=== PATIENT | female | born 1995 | race Caucasian/White ===

== ENCOUNTER 2020-05-26 14:09 | Emergency (ER) | payer OTHER, SELFPAY ==
[2020-05-26 14:18] VITALS: BP 142/92; PULSE 87; RESP 16; TEMP 36.7; O2SAT 100
--- NOTE | 2020-05-26 14:19 | ED.GENADULT ---
HPI - General Adult General Chief complaint: Dental/Oral Stated complaint: tooth pain Time Seen by Provider: 05/26/20 14:19 Source: patient Mode of arrival: ambulatory Limitations: no limitations History of Present Illness HPI narrative: 25-year-old female patient presents to the [facility] with complaints of right upper dental pain x2 to 3 days. Denies any fevers but states she has had some body aches and chills. Denies any obvious discharge coming from the tooth. Patient states that this morning she noticed that her right cheek was a little swollen and wanted to come and get checked out. Patient states she did try calling her dentist for a follow-up however they are not able to get her in until July. Patient states she was taking some naproxen that she had leftover which she states did help with her pain. Related Data Home Medications Medication Instructions Recorded Confirmed Bc Pill 05/26/20 Allergies Allergy/AdvReac Type Severity Reaction Status Date / Time No Known Allergies Allergy Verified 05/26/20 14:14 Review of Systems Review of Systems: Narrative: CONSTITUTIONAL: Denies fever, chills, or sweats. EYES: Denies visual changes, redness, or discharge. ENT: Denies rhinorrhea, congestion, sore throat, or otalgia. Positive right upper dental pain x2 to 3 days CARDIOVASCULAR: Denies chest pain, palpitations, or edema. RESPIRATORY: Denies cough or dyspnea. GASTROINTESTINAL: Denies abdominal pain, nausea, vomiting, or diarrhea. GENITOURINARY: Denies dysuria or hematuria. SKIN: Denies rash or itching. MUSCULOSKELETAL: Denies back pain, joint pain, or myalgia. NEUROLOGIC: Denies headache, numbness, or weakness. PSYCHIATRIC: Denies anxiety or depression. PMFSH Comments At the time of my signature I agree with nursing past medical history, surgical, social, and family history. There is no relevant family history pertinent to the presenting complaint. Exam Narrative: Exam Narrative: GENERAL: Well-appearing, well-nourished, and in no acute distress. HEAD: Normocephalic, atraumatic. EYES: PERRLA and EOMI. ENT: Nares clear, no rhinorrhea or epistaxis. Mucous membranes moist. Patient does have a broken tooth noted to the right upper molar with surrounding erythema and swelling to the gum no obvious discharge noted. There is a lot of tenderness noted. The right cheek is slightly swollen and on palpation there could be an abscess palpated but there is nothing visualized. NECK: Supple. No lymphadenopathy CHEST: Clear to auscultation. No respiratory distress. HEART: Regular rate and rhythm. No murmur heard. Normal peripheral pulses. ABDOMEN: Soft, nontender, nondistended, normal active bowel sounds. EXTREMITIES: Normal range of motion. No edema. SKIN: Warm, dry, no rash. NEURO: No focal deficits. Alert and oriented x3. Course Vital Signs Vital signs: Vital signs reviewed. The patient has been informed that they may have pre-hypertension or Hypertension based on a BP reading in the department. I recommend that the patient call the primary care provider listed on their discharge instructions or a physician of their choice this week to arrange follow up for further evaluation of possible pre-hypertension or Hypertension Medical Decision Making Differential Diagnosis Differential Diagnosis: Differential diagnosis: Dental caries, periodontal disease, avulsed tooth, tooth infections, mandibular infection, Jm's angiana, upper tooth infection, dry socket, gingivitis, acute necrotizing ulcerative gingivitis, sialolithiasis. Discussed with patient that we will go ahead and discharge her home with an antibiotic as well as some naproxen since this is helping her pain. Encourage patient to go ahead and make an appointment with her dentist even if it is in July that way if she continues to have issues she can get this taken care of in July. Patient verbalized understanding denies any other questions or concerns at this
== END 2020-05-26 14:31 | disposition home or self-care (01) ==
PROVIDERS: Emergency Provider Nurse Practitioner Family; PCP Family Medicine
DX: K02.9 Dental caries, unspecified (principal); K04.7 Periapical abscess without sinus; S02.5XXA Fracture of tooth (traumatic), initial encounter for closed fracture; X58.XXXA Exposure to other specified factors, initial encounter
CPT/HCPCS: 99203; G0463

== ENCOUNTER 2022-02-11 10:57 | Emergency (ER) | payer OTHER, SELFPAY ==
[2022-02-11 11:06] VITALS: BP 138/77; PULSE 67; RESP 16; TEMP 36.5; O2SAT 99
--- NOTE | 2022-02-11 11:19 | ED.EAR ---
HPI - Ear Problem General Chief complaint: Ear Stated complaint: Ear Pain Time Seen by Provider: 02/11/22 11:10 Source: patient Mode of arrival: ambulatory Limitations: no limitations History of Present Illness HPI Narrative: Ms. Garcia is a 27-year-old female patient presenting to the clinic today with complaints of right ear pain x4 days. She reports last night was the worst pain for her. She also reports some dizziness and nausea. She denies any fever or chills. Related Data Allergies Allergy/AdvReac Type Severity Reaction Status Date / Time No Known Allergies Allergy Verified 02/11/22 11:00 Review of Systems Review of Systems: Pertinent positives per HPI. Patient denies any fever, chills, rash, headache, visual changes, dizziness, cough, runny nose, sore throat, shortness of breath, chest pain, palpitations, nausea, vomiting, diarrhea, constipation, abdominal pain, or any urinary issues. PMFSH Comments At the time of my signature, I reviewed and agree with the nursing past medical, surgical, social, and family history. There is no relevant family history pertinent to the patient complaint. Exam Narrative: General: Well-developed, well nourished, in no apparent distress Head: Normocephalic, atraumatic Eyes: Pupils equally round and reactive to light bilaterally, EOM intact, sclera and conjunctive clear, no discharge, lids normal Ears: Left TM intact and clear, right TM intact, bulging, red, left ear canals clear, right ear canal swollen, red, with white exudate, grossly hearing normal. Nose: Nares patent, no discharge, no inflammation, no sinus tenderness. Mouth: Oropharynx without lesions or masses, good dentition, MMM. Neck: Supple, trachea midline, no enlargement of anterior or posterior cervical nodes, no thyroid masses or goiter palpable. Cardio: Regular rate and rhythm, s1 and s2 normal, no murmur appreciated. Resp: Clear to auscultation bilaterally anteriorly and posteriorly, no rhonchi, rales, wheezing or rubs Course Course Emergency Course: Portions of this record may have been created with voice recognition software. Level of Care: Express Care Visit Vital Signs Vital signs: Vital Signs Temperature 36.5 C 02/11/22 11:06 Pulse Rate 67 02/11/22 11:06 Respiratory Rate 16 02/11/22 11:06 Blood Pressure 138/77 02/11/22 11:06 Pulse Oximetry 99 02/11/22 11:06 Oxygen Delivery Room Air 02/11/22 11:06 Temperature 36.5 C 02/11/22 11:06 Pulse Rate 67 02/11/22 11:06 Respiratory Rate 16 02/11/22 11:06 Blood Pressure 138/77 02/11/22 11:06 Pulse Oximetry 99 02/11/22 11:06 Oxygen Delivery Room Air 02/11/22 11:06 Vital signs reviewed Medical Decision Making MDM Narrative Medical decision making narrative: At the time of visit patient is resting comfortably on the exam table. I suspect the patient has right otitis media and otitis externa. Amoxicillin ofloxacin drops were sent to the pharmacy. Supportive measures were discussed with the patient and she voiced understanding of discharge instructions and agrees to treatment plan Differential Diagnosis Differential Diagnosis: Otitis media, otitis externa, eustachian tube dysfunction, otalgia Vital Signs Vital Signs: Vital Signs Temperature 36.5 C 02/11/22 11:06 Pulse Rate 67 02/11/22 11:06 Respiratory Rate 16 02/11/22 11:06 Blood Pressure 138/77 02/11/22 11:06 Pulse Oximetry 99 02/11/22 11:06 Oxygen Delivery Room Air 02/11/22 11:06 Temperature 36.5 C 02/11/22 11:06 Pulse Rate 67 02/11/22 11:06 Respiratory Rate 16 02/11/22 11:06 Blood Pressure 138/77 02/11/22 11:06 Pulse Oximetry 99 02/11/22 11:06 Oxygen Delivery Room Air 02/11/22 11:06 Discharge Plan Discharge Clinical Impression: Otitis externa, Otitis media Patient Disposition: Home, Self-Care Condition: Stable Instructions: Antibiotic Form, Swimmer's Ear (ED), Ear Infection (ED) Additiona
== END 2022-02-11 11:23 | disposition home or self-care (01) ==
PROVIDERS: Emergency Provider Nurse Practitioner Family; PCP Family Medicine
DX: H60.91 Unspecified otitis externa, right ear (principal); H66.91 Otitis media, unspecified, right ear
CPT/HCPCS: 99213; G0463

== ENCOUNTER 2022-02-13 10:33 | Emergency (ER) | payer OTHER, SELFPAY ==
[2022-02-13 11:08] VITALS: BP 142/89; PULSE 93; RESP 18; TEMP 36.4; O2SAT 99
--- NOTE | 2022-02-13 11:39 | ED.EAR ---
HPI - Ear Problem General Chief complaint: Ear Stated complaint: Ear infection Time Seen by Provider: 02/13/22 11:39 History of Present Illness HPI Narrative: Monica Garcia is a 27 yo female with no PMH who came here 2 days ago with ear pain and was started on eardrops and antibiotic. She states that pain has not improved and describes it now as 10 out of 10 Patient spoke to This morning who said that he could not get her in that she come should come back here She states that she has swelling cannot open her mouth far and something is really wrong- I told her that we can try giving her prednisone and IM antibiotic or go to the ER. If the meds I give her don't help her she needs to go to the ER. Patient was very angry and stated that this is her only second time here and I don't need to talk to her like this. I apologized and told her that I was trying to make clear what her treatment plan would be; that if in fact these 2 drugs did not help her along with the medication at discharge; she had to go to the emergency room if she got worse because there is nothing else that we can do in the [facility] for her Related Data Allergies Allergy/AdvReac Type Severity Reaction Status Date / Time No Known Allergies Allergy Verified 02/13/22 10:54 Review of Systems Review of Systems: CONSTITUTIONAL: Denies fever, chills, sweats. EYES: Denies visual changes, redness, discharge. ENT: Denies rhinorrhea, congestion, sore throat, right otalgia. States that she is got swelling along her right jaw and she cannot open her mouth CARDIOVASCULAR: Denies chest pain, palpitations, edema. RESPIRATORY: Denies dyspnea, wheezing, cough GASTROINTESTINAL: Denies abdominal pain, nausea, vomiting, diarrhea. GENITOURINARY: Denies dysuria, hematuria, abnormal discharge SKIN: Denies rash or itching. NEUROLOGIC: Denies numbness, or focal weakness. PSYCHIATRIC: Denies anxiety or depression. PMFSH Social History Social History (Updated 02/13/22 @ 11:40 by Kelsy Valerio CNP) Smoking status: Never smoker Alcohol intake: current Comments At time of signature, I agree with nursing past medical, surgical, social and family history. There is no relevant family history pertinent to the presenting complaint. Exam Narrative: GENERAL: This is a well-nourished, well-developed patient, in mild distress. HEAD: normocephalic, atraumatic. EYES: PERRL. Sclera clear/white. Vision is grossly intact. EARS: External mild erythema of right ear, very tender to touch, , auditory canals erythema, unable to visualize TM and drainage although patient states that she had drainage last night on her pillow Hearing grossly intact. NOSE: External nose normal without nasal discharge, nares without redness, no rhinorrhea. THROAT: Mucous membranes moist, posterior pharynx hard to visualize as patient cannot or will not open mouth due to pain has some mild swelling to the right side of her face; limited ability to open mouth due to pain NECK: Neck supple, non-tender CARDIOVASCULAR: Regular rate and rhythm without murmurs, gallops, or rubs. RESPIRATORY: Clear to auscultation. Breath sounds equal bilaterally. No wheezes, rales, or rhonchi. GASTROINTESTINAL: Not done SKIN: warm, intact with no suspicious lesions or rash, good texture and turgor. NEURO: awake, alert, and oriented to person, place and time. There were no obvious focal neurologic abnormalities. Steady gait EXTREMITIES: Normal range of motion. BACK: Nontender without deformity Course Course Emergency Course: Patient here with increasing pain of right ear and difficulty opening mouth and complaining of exterior ear pain. States has been taking antibiotics and using eardrops as prescribed 2 days ago Patient given Decadron 4 mg here along with Rocephin 500 mg on site Started on prednisone taper pack along with abx replacement with Augmentin; [place] for pain written instructions include going to ER if not improve (suspect e
[2022-02-13] MEDS: cefTRIAXone 500 MG, LIDOCAINE HCL 1% LOCAL INJ 1 ML IM (12:09)
--- NOTE | 2022-02-13 12:15 | PC.NURSE ---
was tearful. stated upset d/t being second visit.
== END 2022-02-13 12:30 | disposition home or self-care (01) ==
PROVIDERS: Emergency Provider Nurse Practitioner; PCP Family Medicine
DX: H60.91 Unspecified otitis externa, right ear (principal); Z86.16 Personal history of COVID-19
CPT/HCPCS: 96372; 99214; G0463; J0696; J1100

== ENCOUNTER 2022-12-01 16:24 | Emergency (ER) | payer OTHER, SELFPAY ==
[2022-12-01 16:27] VITALS: PULSE 106; RESP 18; TEMP 36.5; O2SAT 98
--- NOTE | 2022-12-01 17:28 | ED.DENTAL ---
HPI - Dental/Oral General Chief complaint: Dental/Oral <Keenan Nesbitt PA-C - Last Filed: 12/01/22 17:45> Stated complaint: dental pain, jaw swelling <Keenan eNsbitt PA-C - Last Filed: 12/01/22 17:45> Time Seen by Provider: 12/01/22 16:32 <Keenan Nesbitt PA-C - Last Filed: 12/01/22 17:45> Source: patient <ELOISA Prado Last Filed: 12/01/22 17:45> Mode of arrival: ambulatory <Keenan Nesbitt PA-C - Last Filed: 12/01/22 17:45> Limitations: no limitations <ELOISA Prado Last Filed: 12/01/22 17:45> History of Present Illness HPI Narrative: This is a 27-year-old female who presents to the ED with chief complaint of right lower dental pain ongoing for the past 3 days. She has used Tylenol with moderate relief at home. She is presenting today because she was told to go to the ER by her dentist. They were concerned because she is reporting paresthesias to the right lower perioral area. Denies any fevers, chills, trismus, drooling nausea, vomiting, swelling. <Keenan Nesbitt PA-C - Last Filed: 12/01/22 17:45> Related Data Allergies/adverse reactions: Allergies Allergy/AdvReac Type Severity Reaction Status Date / Time No Known Allergies Allergy Verified 12/01/22 16:56 <Keenan Nesbitt PA-C - Last Filed: 12/01/22 17:45> Review of Systems Review of Systems: CONSTITUTIONAL: Denies fever, chills, or sweats. EYES: Denies visual changes, redness, or discharge. ENT: See HPI CARDIOVASCULAR: Denies chest pain, palpitations, or edema. RESPIRATORY: Denies cough or dyspnea. GASTROINTESTINAL: Denies abdominal pain, nausea, vomiting, or diarrhea. GENITOURINARY: Denies dysuria or hematuria. SKIN: Denies rash or itching. MUSCULOSKELETAL: Denies back pain, joint pain, or myalgia. NEUROLOGIC: Denies headache, numbness, dizziness, or weakness. PSYCHIATRIC: Denies anxiety or depression. <Keenan Nesbitt PA-C - Last Filed: 12/01/22 17:45> [facility] Social History Social History: Social History (Updated 02/13/22 @ 11:40 by Kelsy Valerio, [employer]INE [employer]) Smoking status: Never smoker Alcohol intake: current <Keenan Nesbitt PA-C - Last Filed: 12/01/22 17:45> Exam Narrative: GENERAL: Well-appearing, well-nourished, and in no acute distress. HEAD: Normocephalic, atraumatic. EYES: PERRLA and EOMI. ENT: Nares clear, no rhinorrhea or epistaxis. Mucous membranes moist. Oropharynx without tonsillar hypertrophy exudate or other lesions. There is a broken right posterior most molar with evident caries. Mild swelling around the gums but no obvious abscess. Floor the mouth is intact. Posterior pharynx intact with no uvular deviation. No trismus or drooling. NECK: Supple. No adenopathy or masses. CHEST: No respiratory distress. Clear to auscultation. No wheezes rales or rhonchi HEART: Regular rate and rhythm. No murmur heard. Normal peripheral pulses. ABDOMEN: Soft, nontender, nondistended, normal active bowel sounds. MSK: Normal range of motion. No edema. SKIN: Warm, dry, no rash. NEURO: Alert and oriented x3. No focal deficits. PSYCH: Normal mood and affect. <Keenan Nesbitt PA-C - Last Filed: 12/01/22 17:45> Course CASE BRIEFER/PA Physician Supervision For this patient encounter, I reviewed the CASE BRIEFER or PA documentation, treatment plan, and I was responsible for the medical decision making; and I had [id number] time with this patient. <Silvano Redding MD - Last Filed: 12/01/22 21:05> Vital Signs Vital signs: Vital Signs Temperature 97.7 F 12/01/22 16:27 Pulse Rate 106 H 12/01/22 16:27 Respiratory Rate 18 12/01/22 16:27 Pulse Oximetry 98 12/01/22 16:27 Oxygen Delivery Room Air 12/01/22 16:27 Temperature 98.6 F 12/01/22 17:50 Pulse Rate 82 12/01/22 17:50 Respiratory Rate 18 12/01/22 17:50 Pulse Oximetry 100 12/01/22 17:50 Oxygen Delivery Room Air 12/01/22 16:27 <Keenan Nesbitt PA-C - Last Filed: 12/01/22 17:45> Vital Sign
[2022-12-01] MEDS: HYDROcodone/acetaminophen (*CRX) 7.5-325 MG TABLET 1 TAB PO (17:31)
[2022-12-01 17:50] VITALS: PULSE 82; RESP 18; TEMP 37; O2SAT 100
== END 2022-12-01 17:53 | disposition home or self-care (01) ==
PROVIDERS: Emergency Provider Physician Assistant; PCP Family Medicine
DX: K03.81 Cracked tooth (principal); K02.9 Dental caries, unspecified
CPT/HCPCS: 99283; A9270

== ENCOUNTER 2024-07-23 08:23 | Emergency (ER) | payer OTHER, SELFPAY ==
--- NOTE | ~2024-07-23 | XR_ITS ---
EXAMINATION: XR chest 2V DATE: 07/23/2024 09:28 INDICATION: Productive cough. TECHNIQUE: Frontal and lateral views of the chest were obtained. COMPARISON: None. FINDINGS: There is no pneumonia, pleural effusion, or pneumothorax. The heart size is normal. IMPRESSION: 1. No acute cardiopulmonary disease. Reviewed, dictated and finalized at location B. [employer]
[2024-07-23 08:43] VITALS: BP 165/93; PULSE 100; RESP 16; TEMP 37.5; O2SAT 100
[2024-07-23 08:50] LABS: EDUAAPPEAR Clear; EDUABILI Negative (Negative); EDUABLOOD 3+ (Negative); EDUACOLOR1 Yellow; EDUAGLUCOSE Negative (Negative); EDUAKETONE Negative (Negative); EDUALEUKO Negative (Negative); EDUANITRATE Negative (Negative); EDUAPH 5.5; EDUAPROTEIN 2+ (Negative); EDUAUROBILI 0.2
--- NOTE | 2024-07-23 08:55 | ED.URI ---
HPI - URI/Sore Throat General Chief Complaint: Urogenital-Female Stated Complaint: kidney inf/flu Time Seen by Provider: 07/23/24 08:45 Source: patient and RN notes reviewed Mode of arrival: ambulatory Limitations: no limitations History of Present Illness HPI Narrative: Patient presents today with a 2 day history of dry cough aches, chills, headache, vomiting, shortness of breath, wheezing. This morning is the 1st time she has been able to keep down any fluids since onset of the vomiting. She has been able to take a bit of DayQuil which provided some mild relief of the coughing. Negative home COVID test. Patient is also complaining of a one-month history of dribbling urine with some intermittent mid back pain bilaterally. She finished her menstrual cycle 2-3 days ago. Denies hematuria or abdominal pain. Related Data Allergies Allergy/AdvReac Type Severity Reaction Status Date / Time No Known Allergies Allergy Verified 07/23/24 08:37 Review of Systems Review of Systems: CONSTITUTIONAL: + body aches, chills EYES: Denies visual changes, redness, or discharge. ENT: Denies rhinorrhea, congestion, sore throat, or otalgia. CARDIOVASCULAR: Denies chest pain, palpitations, or edema. RESPIRATORY: + cough, shortness of breath, wheezing GASTROINTESTINAL: Denies abdominal pain, or diarrhea.+ nausea and vomiting GENITOURINARY: Denies dysuria or hematuria.+ dribbling urine SKIN: Denies rash, itching, or wounds. MUSCULOSKELETAL: Denies joint pain, or myalgia.+ midback pain NEUROLOGIC: Denies headache, numbness, tingling, or weakness. PSYCH: Denies depression or anxiety. PMFSH Social History Social History Smoking status: Never smoker Alcohol intake: current Comments At time of signature, I have reviewed and agree with nursing past medical, surgical, social and family history unless otherwise noted. Please see nursing chart for further information. There is no relevant family history pertinent to the presenting complaint Exam Narrative: GENERAL: Mildly ill-appearing, well-nourished, and in no acute distress. HEAD: Normocephalic, atraumatic. EYES: EOMI. No redness or drainage. Conjunctivae normal. ENT: Mucous membranes pink and moist. Nares clear. No rhinorrhea. TMs normal bilaterally. Throat normal. Uvula midline. NECK: Normal AROM. Supple. No lymphadenopathy. CHEST: No respiratory distress. Expiratory wheezing throughout, slight inspiratory wheeze in the right lower lobe. HEART: Regular rate and rhythm. No murmur appreciated. Normal peripheral pulses. ABDOMEN: Soft, nontender, nondistended, normal active bowel sounds. EXTREMITIES: Normal range of motion. No edema. SKIN: Warm, dry, no rash. Capillary refill normal. Normal skin turgor. NEURO: No focal deficits. Alert and oriented x3. Gait steady. PSYCH: Normal affect. No signs of depression or anxiety. Course Course Level of Care: Express Care Visit Vital Signs Vital signs: Vital Signs Temperature 99.5 F 07/23/24 08:43 Pulse Rate 100 07/23/24 08:43 Respiratory Rate 16 07/23/24 08:43 Blood Pressure 165/93 H 07/23/24 08:43 Pulse Oximetry 100 07/23/24 08:43 Oxygen Delivery Room Air 07/23/24 08:43 Temperature 99.5 F 07/23/24 08:43 Pulse Rate 100 07/23/24 08:43 Respiratory Rate 16 07/23/24 08:43 Blood Pressure 165/93 H 07/23/24 08:43 Pulse Oximetry 100 07/23/24 08:43 Oxygen Delivery Room Air 07/23/24 08:43 Reviewed MDM - URI/Sore Throat MDM Narrative Medical decision making narrative: Influenza a positive. Chest x-ray negative. Urinalysis together with patient's symptoms are consistent with UTI. Patient will be started on Tamiflu and Augmentin as well as Zofran for her nausea and vomiting. Patient agrees with plan. Anticipatory guidance given. ED precautions given. Differential Diagnosis Differential diagnosis: Likely upper respiratory infection, sinusitis, viral infection, bronchitis, influenza and other (UTI, pyelonephritis) Lab Data Attestation: I reviewed the patient's lab results. Labs: Lab Results 07/23/24 07/23/24 Range/Units 08:48 09:14 POC Urine Color Yellow POC Urine Clarity Clear POC Urine pH 5.5 POC Ur Specif [place] 1.030 POC Urine Protein 2+ (Negative) POC Ur Glucose (UA) Negative (Negative) POC Urine Ketones Negative (Negative) POC Urine Blood 3+ (Negative) POC Urine Nitrite Negative (Negative) POC Urine Bilirubin Negative (Negative) POC Urine Urobilinogen 0.2 POC U Leukocyte Esteras Negative (Negative) POC Influenza A Ag Positive (Negative) POC Influenza B Ag Negative (Negative) Imaging Data Radiologist's impression: ITS Impressions Chest X-Ray 07/23/24 09:32 IMPRESSION: 1. No acute cardiopulmonary disease. Critical Care Time Critical Care Time Critical Care Time: No Discharge Plan Discharge Clinical Impression: Influenza A Urinary tract infection Qualifiers: Urinary tract infection type: site unspecified Hematuria presence: with hematuria Qualified Code(s): N39.0 - Urinary tract infection, site not specified Patient Disposition: Home, Self-Care Condition: Stable Instructions: Antibiotic Form, Urinary Tract Infection in Women (DC), Influenza (DC) Additional Instructions: Your chest x-ray is negative for pneumonia. You have tested positive for influenza A. Your urinalysis is consistent with UTI. Please take the Tamiflu for the influenza, Augmentin for the UTI symptoms, Zofran for the nausea and vomiting, and use albuterol inhaler for your cough and wheezing. Follow-up with your PCP with any additional concerns. As discussed, please go to the ER immediately with any worsening symptoms. Your blood pressure was elevated above 120/80 today at Urgent Care. This puts you above the threshold for follow up. Please schedule a followup visit with your personal physician as soon as possible, for further evaluation and treatment. Even blood pressure exceeding 120/80 may indicate pre-hypertension. Patient Language: Estonian Prescriptions: New ondansetron 8 mg tablet,disintegrating 8 mg PO Q4-6H PRN (Reason: nausea and vomiting) Qty: 20 0RF oseltamivir [Tamiflu] 75 mg capsule 75 mg PO Q12H 5 Days Qty: 10 0RF albuterol sulfate 90 mcg/actuation HFA aerosol inhaler 2 inh inhalation Q4-6H PRN (Reason: shortness of breath or wheezing) Qty: 8.5 0RF amoxicillin-pot clavulanate 875-125 mg tablet 1 tablet PO Q12H 7 Days Qty: 14 0RF (DME) BreatheRite MDI Spacer Spacer See Rx Instructions .ROUTE .MEDSUPPLY Qty: 1 0RF Rx Instructions: As directed Follow-up/Referrals: PHYSICIAN,DIRECTOR AUTOMOTIVE [Primary Care Provider] - Stand Alone Forms: Work/School Release IP Time of Disposition: 09:55
[2024-07-23 09:15] LABS: EDINFLUASCREEN Positive (Negative); EDINFLUBSCREEN Negative (Negative)
== END 2024-07-23 10:01 | disposition home or self-care (01) ==
PROVIDERS: Emergency Provider Nurse Practitioner
DX: J10.1 Influenza due to other identified influenza virus with other respiratory manifestations (principal); N39.0 Urinary tract infection, site not specified
CPT/HCPCS: 71046; 81003; 87086; 87804; 99213; G0463

== ENCOUNTER 2024-11-12 06:49 | Emergency (ER) | payer OTHER, SELFPAY ==
--- OUTSIDE RECORDS SUMMARY | 2024-11-12 06:51 | XMS_ITS | Data Portability ---
Author Organization [facility] [place] Address [address] [place] [address] Care Team Providers Care Clerical Office Name Role Phone KELSEA BLANCHARD Primary Care Provider Assessment Encounter Date Assessment Date Assessment LastModified by Organization Details LastModified Time 08/07/2021 08/07/2021 This patient is a 27-year-old female with pelvic pain. We have agreed to complete the evaluation with pelvic ultrasound. The patient will return after the pelvic ultrasound to discuss those findings and to develop a treatment plan. A comprehensive history and physical exam was performed today. We spent over 25 minutes [id number]. The patient was given precautions. She will contact clinic if pelvic pain increases in frequency or intensity. Also notify clinic of any new symptoms associated with pelvic pain. She does not appear to have an acute pelvic infection today, but was asked to contact us Immediately with nausea, vomiting, fever, chills. Not available 08/12/2022 15:34:31 Plan of Treatment Reminders Order Date Submit Date Provider Last Modified By Organization Details Last Modified Time Details Appointments None recorded. Lab TSH, serum or plasma 2021 022 [facility] (Lab), [address] [place], [address], 04:41:34 CBC w/ auto diff 2021 022 [facility] (Lab), [address] [place], [address], 2 04:41:33 CMP, serum or plasma 2021 [facility] (Lab), [address], [place], [address], 04:41:34 HbA1c (hemoglobi n A1c), blood 2021 [facility] (Lab), [address], [place], [address], 04:41:36 vitamin B12 + folate, serum or blood 2021 [facility] (Lab), [address], [place], [address], 2 04:41:36 vitamin D, 25-hydroxy , total, serum 2021 [facility] (Lab), [address], [place], [address], 04:41:35 Referral None recorded. Procedures None recorded. Surgeries None recorded. Imaging US, pelvis, complete [id number], [facility] [address], [address], [place], [address], 15:25:30 Medication Orders Zoloft 25 mg tablet 2021 [id number], [address], [place], [place], [id number], 11:29:42 Patient TargetsNo targets recorded. Patient Instructions Encounter Date Encounter Id Patient Instructions Last Modified By Organization Details Last Modified Time 08/07/2021 [id number] pyridoxine (vitamin B6) Not available 08/07/2021 11:31:56 Reason for Referral None Reported. Results Created Date Observation Date Name Description Value Unit Range Abnormal Flag Note LastModifiedBy Organization Detail LastModifiedTime 08/07/19 22 08/07/2021 CBC W/DIF F WBC 7.8 10'3/ uL 3.6-10 .2 Not Available [facility] (Lab) [address], [place], [address], 08/08/2021 04:41:33 08/07/19 22 08/07/2021 CBC W/DIF F RBC 5.00 10'6/ uL (based on docume nted legal sex) 4.10-5 .30 Not Available [facility] (Lab) [address], [place], [address], 08/08/2021 04:41:33 08/07/19 22 08/07/2021 CBC W/DIF F HGB 13.0 g/dL (based on docume nted legal sex) 11.9-1 5.8 Not Available [facility] (Lab) [address], [place], [address], 08/08/2021 04:41:33 08/07/19 22 08/07/2021 CBC W/DIF F HCT 41.6 % (based on docume nted legal sex) 37.4-4 8.3 Not Available [facility] (Lab) [address], [place], [address], 08/08/2021 04:41:33 08/07/19 22 08/07/2021 CBC W/DIF F MCV 84.0 fL 82.0-9 9.0 Not Available [facility] (Lab) [address], [place], [address], 08/08/2021 04:41:33 08/07/19 22 08/07/2021 CBC W/DIF F MCH 26.0 pg 27.0-3 3.0 low Not Available [facility] (Lab) [address], [place], [address], 08/08/2021 04:41:33 08/07/19 22 08/07/2021 CBC W/DIF F MCHC 31.0 g/dL 32.0-3 6.0 low Not Available [facility] (Lab) [address], [place], [address], 08/08/2021 04:41:33 08/07/19 22 08/07/2021 CBC W/DIF F RDW 13.0 % 11.0-1 5.0 Not Available [facility] (Lab) [address], [place], [address], 08/08/2021 04:41:33 08/07/19 22 08/07/2021 CBC W/DIF F plt 380 10'3/ uL 150-45 0 Not Available [facility] (Lab) [address], [place], [address], 08/08/2021 04:41:33 08/07/19 22 08/07/2021 CBC W/DIF F MPV 10.5 fL 9.8-12 .7 Not Available [facility] (Lab) [address], [place], [address], 08/08/2021 04:41:33 08/07/19 22 08/07/2021 CBC W/DIF F NRBC's 0.00 % 0 Not Available [facility] (Lab) [address], [place], [address], 08/08/2021 04:41:33 08/07/19 22 08/07/2021 CBC W/DIF F absolute NRBCs 0.0 10'3/ uL 0 Not Available [facility] (Lab) [address], [place], [address], 08/08/2021 04:41:33 08/07/19 22 08/07/2021 CBC W/DIF F neutrophils 50.0 % 37.0-7 2.0 Not Available [facility] (Lab) [address], [place], [address], 08/08/2021 04:41:33 08/07/19 22 08/07/2021 CBC W/DIF F lymphocytes 36.0 % 16.0-4 8.0 Not Available [facility] (Lab) [address], [place], [address], 08/08/2021 04:41:33 08/07/19 22 08/07/2021 CBC W/DIF F monocytes 10.0 % 4.0-14 .0 Not Available [facility] (Lab) [address], [place], [address], 08/08/2021 04:41:33 08/07/19 22 08/07/2021 CBC W/DIF F eosinophils 3.0 % 0.0-9. 0 Not Available [facility] (Lab) [address], [place], [address], 08/08/2021 04:41:33 08/07/19 22 08/07/2021 CBC W/DIF F basophils 1.0 % 0.0-2. 0 Not Available [facility] (Lab) [address], [place], [address], 08/08/2021 04:41:33 08/07/19 22 08/07/2021 CBC W/DIF F immature granulocytes 0.0 % no define d refere nce range Not Available [facility] (Lab) [address], [place], [address], 08/08/2021 04:41:33 08/07/19 22 08/07/2021 CBC W/DIF F absolute neutrophils 3.9 10'3/ uL 1.1-6. 0 Not Available [facility] (Lab) [address], [place], [address], 08/08/2021 04:41:33 08/07/19 22 08/07/2021 CBC W/DIF F absolute lymphocytes 2.8 10'3/ uL 0.7-3. 4 Not Available [facility] (Lab) [address], [place], [address], 08/08/2021 04:41:33 08/07/19 22 08/07/2021 CBC W/DIF F absolute monocytes 0.8 10'3/ uL 0.3-1. 0 Not Available [facility] (Lab) [address], [place], [address], 08/08/2021 04:41:33 08/07/19 22 08/07/2021 CBC W/DIF F absolute eosinophils 0.2 10'3/ uL 0.0-0. 6 Not Available [facility] (Lab) [address], [place], [address], 08/08/2021 04:41:33 08/07/19 22 08/07/2021 CBC W/DIF F absolute basophils 0.1 10'3/ uL 0.0-0. 1 Not Available [facility] (Lab) [address], [place], [address], 08/08/2021 04:41:33 08/07/19 22 08/07/2021 CBC W/DIF F absolute immature granulocytes 0.00 10'3/ uL 0.00-0 .10 022 1:06 AM: P indic ates parti al resul ts on a panel have been relea sed. Addit ional resul ts will follo w. 022 1:06 AM: This resul t has been final verif ied. No addit ional or root ed resul ts are expec bari. Not Available [facility] (Lab) [address], [place], [address], 08/08/2021 04:41:33 08/07/19 22 08/07/2021 CMP WITH BUN/C REAT RATIO sodium 142 mmol/ L 133-14 6 Not Available [facility] (Lab) [address], [place], [address], 08/08/2021 04:41:34 08/07/19 22 08/07/2021 CMP WITH BUN/C REAT RATIO potassium 4.3 mmol/ L 3.5-5. 1 Not Available [facility] (Lab) [address], [place], [address], 08/08/2021 04:41:34 08/07/19 22 08/07/2021 CMP WITH BUN/C REAT RATIO chloride 105 mmol/ L 98-107 Not Available [facility] (Lab) [address], [place], [address], 08/08/2021 04:41:34 08/07/19 22 08/07/2021 CMP WITH BUN/C REAT RATIO carbon dioxide 29 mmol/ L 21-31 Not Available [facility] (Lab) [address], [place], [address], 08/08/2021 04:41:34 08/07/19 22 08/07/2021 CMP WITH BUN/C REAT RATIO anion gap 8 mmol/ L 4-13 Not Available [facility] (Lab) [address], [place], [address], 08/08/2021 04:41:34 08/07/19 22 08/07/2021 CMP WITH BUN/C REAT RATIO blood urea nitrogen 18 mg/dL 7-25 Not Available [facility] (Lab) [address], [place], [address], 08/08/2021 04:41:34 08/07/19 22 08/07/2021 CMP WITH BUN/C REAT RATIO creatinine 0.63 mg/dL 0.60-1 .30 Not Available [facility] (Lab) [address], [place], [address], 08/08/2021 04:41:34 08/07/19 22 08/07/2021 CMP WITH BUN/C REAT RATIO egfrcr (CKD-epi 2020) >90 mL/mi n/1.7 3_m2 >=60 Not Available [facility] (Lab) [address], [place], [address], 08/08/2021 04:41:34 08/07/19 22 08/07/2021 CMP WITH BUN/C REAT RATIO BUN/creatini ne ratio 28.6 . 10.0-2 2.0 high Not Available [facility] (Lab) [address], [place], [address], 08/08/2021 04:41:34 08/07/19 22 08/07/2021 CMP WITH BUN/C REAT RATIO calcium 9.6 mg/dL 8.3-10 .5 Not Available [facility] (Lab) [address], [place], [address], 08/08/2021 04:41:34 08/07/19 22 08/07/2021 CMP WITH BUN/C REAT RATIO glucose 97 mg/dL 70-100 Not Available [facility] (Lab) [address], [place], [address], 08/08/2021 04:41:34 08/07/19 22 08/07/2021 CMP WITH BUN/C REAT RATIO protein, total 7.0 g/dL 6.4-8. 3 Not Available [facility] (Lab) [address], [place], [address], 08/08/2021 04:41:34 08/07/19 22 08/07/2021 CMP WITH BUN/C REAT RATIO albumin 4.3 g/dL 3.5-5. 0 Not Available [facility] (Lab) [address] [place], [address], 08/08/2021 04:41:34 08/07/19 22 08/07/2021 CMP WITH BUN/C REAT RATIO ALT 42 units /L 9-43 Not Available [facility] (Lab) [address] [place], [address], 08/08/2021 04:41:34 08/07/19 22 08/07/2021 CMP WITH BUN/C REAT RATIO alkaline phosphatase 86 units /L 34-104 Not Available [facility] (Lab) [address] [place], [address], 08/08/2021 04:41:34 08/07/19 22 08/07/2021 CMP WITH BUN/C REAT RATIO AST 30 units /L 13-39 Not Available [facility] (Lab) [address], [place], [address], 08/08/2021 04:41:34 08/07/19 22 08/07/2021 CMP WITH BUN/C REAT RATIO bilirubin, total 1.0 mg/dL 0.2-1. 2 Not Available [facility] (Lab) [address], [place], [address], 08/08/2021 04:41:34 08/07/19 22 08/07/2021 TSH, REFLE X FREE T4 TSH 0.26 uIU/m L 0.30-5 .33 low Not Available [facility] (Lab) [address], [place], [address], 08/08/2021 04:41:34 08/07/19 22 08/07/2021 VITAM IN D, 25-OH (TOTA L D2/D3 ) vitamin D, 25-hydroxy, total 21.2 NG/mL 30-80 low NOTE: Defic iency : <20 ng/mL Insuf ficie ncy: 20-29 ng/mL Optim um Level : 30-80 ng/mL Possi ble Toxic ity: >80 ng/mL Most patie nts with toxic ity have level s >150 ng/mL . Not Available [facility] (Lab) [address], [place], [address], 08/08/2021 04:41:35 08/07/19 22 08/07/2021 T4 FREE T4, free 0.89 NG/dL 0.60-1 .40 Not Available [facility] (Lab) [address] [place], [address], 08/08/2021 04:41:35 08/07/19 22 08/07/2021 VITAM IN B12 / FOLAT E PANEL vitamin B12 756 pg/mL 180-91 4 Capri l Range : 180-9 14 pg/mL . Indet ermin ate Range : 145-1 80 pg/mL . Defic ient Range : <=145 pg/mL . Not Available [facility] (Lab) [address], [place], [address], 08/08/2021 04:41:35 08/07/19 22 08/07/2021 VITAM IN B12 / FOLAT E PANEL folate, serum 9.8 NG/mL 6.0-20 .0 Not Available [facility] (Lab) [address], [place], [address], 08/08/2021 04:41:35 08/07/19 22 08/07/2021 HEMOG LOBIN A1C hemoglobin A1C 5.8 % 0-5.6 high The Ameri can [employer] [facility] [employer] i[employer] n recom mends that a prima ry goal of thera py jori d be a HBA1C of < 7% and that physi cians shoul d reeva luate the treat ment regim en in patie nts with HBA1C value s consi stent ly > 8%. <5.7% Capri l 5.7 - 6.4% Incre ased risk for diabe jean claude >=6.5 % Diagn ostic of diabe jean claude <7.0% Goal of thera py >8.0% Actio n sugge sted Not Available [facility] (Lab) [address], [place], [address], 08/08/2021 04:41:36 Result Notes None recorded. Medical Equipment None Reported. Allergies No known drug allergies Medications Name Sig Start Date Stop Date Status Note LastModified by Organization Details LastModified Time sertraline 25 mg tablet Take 1 tablet PO Daily starting 10 days prior to onset of menstrual cycle every month. active Not Available Not Available No t Available ergocalcifero l (vitamin D2) 1,250 mcg (50,000 unit) capsule Take 1 capsule every week by oral route. active Not Available Not Available No t Available Vitals Date Recorded Body height Body mass index (BMI) Body weight Systolic blood pressure Diastolic blood pressure Provider Name and Address Organization Details Last Updated DateTime 08/07/2021 171.45 cm 38.7 kg/m2 248331.6 8 g 118 mm[Hg] 74 mm[Hg] Jesenia Brown [facility] 11:01:04 Social History Question Answer Notes LastModified by Organizat ion Details LastModified Time Tobacco Smoking Status Never Smoker Jesenia Brown [facility] 08/07/2021 11:02:29 Do You Have An Advance Directive? No Information n ot available 08/07/2021 Are You Blind Or Do You Have Difficulty Seeing? No Information n ot available 08/07/2021 What Is Your Level Of Caffeine Consumption? Moderate Information not available 08/07/2021 In The 14 Days Before Symptom Onset, Have You Had Close Contact With A Laboratory-confirm ed COVID-19 While That Case Was Ill? No Information n ot available 08/07/2021 In The 14 Days Before Symptom Onset, Have You Had Close Contact With A Person Who Is Under Investigation For COVID-19 While That Person Was Ill? No Information not available 08/07/2021 Have You Been To An Area Known To Be High Risk For COVID-19? No Information not available 08/07/2021 Are You Deaf Or Do You Have Serious Difficulty Hearing? No Information not available 08/07/2021 What Type Of Diet Are You Following? REGULAR Information n ot available 08/07/2021 What Is The Highest Grade Or Level Of School You Have Completed Or The Highest Degree You Have Received? [id number] Information not available 08/07/2021 Are There Any Guns Present In Your Home? No Information not available 08/07/2021 Do You Use Protection During Sex? No Information not available 08/07/2021 Do You Use Your Seat Belt Or Car Seat Routinely? Yes Information not available 08/07/2021 Do You Have Smoke And Carbon Monoxide Detectors In Your Home? Yes Information not available 08/07/2021 How Much Tobacco Do You Smoke? No Information not available 08/07/2021 Do You Use Sunscreen Routinely? No Information not available 08/07/2021 Have You Used IV Drugs? No Information not available 08/07/2021 Sex: Unknown Functional Status Question Answer Note LastModified by Organizat ion Details LastModified Time Do you use any illicit or recreational drugs? No Information not available 08/07/2021 What is your level of alcohol consumption? None Information not available 08/07/2021 Do you have difficulty walking or climbing stairs? No Information not available 08/07/2021 Are you able to walk? 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 No Information not available 08/07/2021 What is your exercise level? Occasional Information not available 08/07/2021 Mental Status Question Answer Note LastModified by Organization D etails LastModified Time Do you feel stressed (tense, restless, nervous, or anxious, or unable to sleep at night)? [id number] Information not available 08/07/2021 Family History Relationship Description Onset Age of this Age Resolved Age Notes LastModified by Organization Details LastModified Time Unspecified Relation Family history unknown Not available 2021 11:01:08 Medical History Condition Response Anxiety Disorder Y Headaches Y Depression/ depression Y Gynecological History Statement/Question Response Flow Moderate Date of LMP 08/04/2021 N Was last menstrual period normal N STIs/STDs N HPV Vaccine Y Duration of Flow (days) 3 Current Control Method N/A Frequency of Cycle (Q days) 28 Sexually Active? Y N/A Menses Monthly Y Age of first menstrual cycle 11 Date of Last Pap Smear Sexual Problems? N Desired Control Method Patch LMP Approximate N Obstetrics History GPAL:G 1 P 0 0 1 0 Type Value Induced 1 Living 0 Total 1 Past Encounters Encounter ID Performer Location Encounter Start Date Encounter Closed Date Diagnosis/Indication Diagnosis SNOMED-CT Code Diagnosis ICD10 Code Diagnosis Note [id number] [facility] [address] [address] 08/07/2021 10:49:55 08/10/2021 16:00:41 Pain in pelvis 06803085 R10.2 Today we agreed to schedule an US for further evaluation more towards the timeframe that ovulation might occur as it seems this is possibly when she has pelvic pain/Pain with IC.Her cycles are fairly predictabl e so we are hoping to catch things at the right time. RTO TVUS, F/U Results of TVUS/Labs. Time spent in visit is a total of 32 mins with at least 50% of visit consisting of counseling and review of plan of care.Addit ional precaution maritza measures were taken to minimize potential exposure to the Covid-19 virus during this patient s visit, including available hand masonry installer upon arrive, temperatur e check and being asked a series of screening questions. All staff wore face coverings during this encounter, as well as provided additional cleaning and sanitizing of all surfaces, including countertop s, pens, chairs, door handles, light switches, etc, prior to and following the patient s visit. Premenstru al tension syndrome [id number] N94.3 Trial of low dose SSRI for PMS/PMDD she struggles with every month. Counseled on r/b's, most common side effects of this therapy with instructio ns to stop medication with any significan t abnormal change in mood especially with thoughts of suicide/se lf-harm/brown rm to others. Understand ing verbalized .Will complete a med check approx 2mos for this therapy. Health Concerns Section Related Observation LastModified by Organization Detai ls LastModified Time None Recorded Concern Status LastModified by Organization Details LastModified Time None Recorded Advance Directives Directive N: Payers Encounter Date Sequence Insurance Name Policy Number Policy Bermeo Covered Member ID Bermeo Member ID Guarantor Name 08/07/2021 1 [facility] - DOS ON OR AFTER 21 (MEDICAID REPLACEMENT - HMO) Monica Garcia [id number] Monica Garcia Notes Date Note Type Note Provider Name and Address Organization Details Recorded Time 08/07/2021 text/html Patient is a 27y o white reproductive age female here today to discuss left sided pelvic pain & increase in her PMS x 6-7 mos. Pain is random & increase cramping, stabbing at times. Comes out of nowhere. No changes in her menstrual cycle.Some pain with intercourse with deep penetration.Neg AUBNeg pain of abd or flankNeg urinary sx'sNeg GI sx'sNeg N/V/F/C/DNeg Vag d/c, odor, irritation, itching 2. PMSFeels has PMS the week leading up to the onset of her cycle.Doesn't want OCP/other hormones if possible.Wants to know if there is anything else she can do to help this issue. Hx reviewed & updated. Miranda Diamond, MARGRET- [address], [place], [address], [facility] 08/12/2022 15:39:26 OBGyn Episode Ob Episode Information Episode Created Date Number of Fetuses Patient Bloodtype Patient rh Status Prepregnancy Weight lbs Domestic Partner Domestic Partner Phone Father Name Lead Applications Developer Status 08/05/19 22 1 CLOSED Fetus Data First Name Last Name Admitted to NICU Weight (g) Sex Living Outcome Pediatric Complications Fetus ID Race Codes Race Delivery Type , Induced [id number] Brian Calculation Initial Brian Date Initial Exam Date Initial Exam Provider Initial Ultrasound Date Last Menstrual Period Date Ultra Sound Weeks Gestation 0 Eighteen To Twenty Week Brian Update Ultra Sound Date Fundal Height At Umbil Quickening Date Ultra Sound Latest Weeks Gestation Final Brian Confirmed By Final Brian Confirmed Date Final Brian Date Ultra Sound Latest Days Gestation 0 0 Menstrual History Last Menstrual Date Menses Monthly On Bcp Conception Prior Menses Frequency Hcg Plus Date Menarche Onset Age Delivery Information Delivery Date Delivery Type Labor Anesthesia Weeks Gestation Incision Type Labor Labor Length Hrs Delivered By Post Complications Tubal Sterilization Discharge Date Comments 9 Discharge Information Feeding Method Contraceptive Method Maternal HG B and HCT Levels
[2024-11-12 06:56] VITALS: BP 148/115; PULSE 103; RESP 17; TEMP 36.7; O2SAT 98
--- NOTE | 2024-11-12 07:24 | ED_ITS ---
HPI - Ear Problem General Chief complaint: Ear Stated complaint: ear pain Time Seen by Provider: 11/12/24 06:59 History of Present Illness HPI Narrative: A 29-year-old female presenting with right ear pain. States that it started yesterday and this morning the right ear was swollen and has been having drainage. States that she has had some mild pain in the left ear. States that her right ear is always on that gives her problems she has had a lot of ear infections in it. States that she did have a few episodes of vomiting last 1 being this morning. Has been taking Aleve which does help temporarily with the pain. No fevers. No headache or vision changes. States that her hearing her right ear is muffled. Related Data Allergies Allergy/AdvReac Type Severity Reaction Status Date / Time No Known Allergies Allergy Verified 11/12/24 07:14 Review of Systems Review of Systems: All systems reviewed & are unremarkable except as noted in HPI and below PMFSH Social History Social History Smoking status: Never smoker Alcohol intake: current Exam Narrative: GENERAL: Nontoxic, no acute distress, pleasant cooperative HEAD: Normocephalic, atraumatic. EYES: PERRLA and EOMI. ENT: Right ear canal erythematous and edematous with some purulent drainage, left canal is mildly erythematous, left tympanic membrane without abnormalities, right tympanic membrane unable to be visualized due to canal swelling, mild erythema of right auricle with tenderness, no mastoid tenderness or erythema NECK: Supple. CHEST: No respiratory distress. HEART: Regular rate and rhythm EXTREMITIES: Normal range of motion. No edema. SKIN: Warm, dry, no rash. NEURO: No focal deficits. Alert and oriented x3. PSYCH: Normal mood and affect. Course Vital Signs Vital signs: Vital Signs Temperature 98.1 F 11/12/24 06:56 Pulse Rate 103 H 11/12/24 06:56 Respiratory Rate 17 11/12/24 06:56 Blood Pressure 148/115 H 11/12/24 06:56 Pulse Oximetry 98 11/12/24 06:56 Oxygen Delivery Room Air 11/12/24 06:56 Temperature 98.1 F 11/12/24 06:56 Pulse Rate 87 11/12/24 08:02 Respiratory Rate 17 11/12/24 08:02 Blood Pressure 141/91 H 11/12/24 08:02 Pulse Oximetry 98 11/12/24 08:02 Oxygen Delivery Room Air 11/12/24 06:56 Medical Decision Making MDM Narrative Medical decision making narrative: 29-year-old female presenting with bilateral ear pain right much more so than the left. Vitals within normal limits. Exam remarkable for the above. The right canal is quite swollen, very still and narrow opening but I am unable to visualize the TM. ear wick will be placed for antibiotic drops on the right. Left canal is not edematous, does not require ear wick. Will also start her on Augmentin for cellulitis of the right auricle. Recommend PCP and ENT follow-up. Appropriate return precautions given. Patient is agreeable with this plan and discharged in stable condition. Differential Diagnosis Differential Diagnosis: Otitis externa, otitis media, her ocular cellulitis, facial cellulitis, mastoiditis Medical Records Medical records reviewed: Yes I reviewed the external patient's medical records. Vital Signs Vital Signs: Vital Signs Temperature 98.1 F 11/12/24 06:56 Pulse Rate 103 H 11/12/24 06:56 Respiratory Rate 17 11/12/24 06:56 Blood Pressure 148/115 H 11/12/24 06:56 Pulse Oximetry 98 11/12/24 06:56 Oxygen Delivery Room Air 11/12/24 06:56 Temperature 98.1 F 11/12/24 06:56 Pulse Rate 87 11/12/24 08:02 Respiratory Rate 17 11/12/24 08:02 Blood Pressure 141/91 H 11/12/24 08:02 Pulse Oximetry 98 11/12/24 08:02 Oxygen Delivery Room Air 11/12/24 06:56 Critical Care Time Critical Care Time Critical Care Time: No Discharge Plan Discharge Clinical Impression: Otitis externa, Cellulitis of right ear Patient Disposition: Home Condition: Stable Instructions: Antibiotic Form, Swimmer's Ear (ED), Ear Infection (AC) Additional Instructions: Please complete the antibiotics as prescribed and follow-up closely with primary care. You may also follow-up with ENT at the number below. If your symptoms worsen or other concerning symptoms arise, please return to the ER. Patient Language: Upper Sorbian Prescriptions: New amoxicillin-pot clavulanate 875-125 mg tablet 1 tablet PO Q12H Qty: 14 0RF ofloxacin 0.3 % drops 10 p EACH EAR DAILY 7 Days Qty: 5 0RF No Action ondansetron 8 mg tablet,disintegrating 8 mg PO Q4-6H PRN (Reason: nausea and vomiting) Qty: 20 0RF oseltamivir [Tamiflu] 75 mg capsule 75 mg PO Q12H 5 Days Qty: 10 0RF albuterol sulfate 90 mcg/actuation HFA aerosol inhaler 2 inh inhalation Q4-6H PRN (Reason: shortness of breath or wheezing) Qty: 8.5 0RF amoxicillin-pot clavulanate 875-125 mg tablet 1 tablet PO Q12H 7 Days Qty: 14 0RF (DME) [facility] MDI Spacer Spacer See Rx Instructions .ROUTE .MEDSUPPLY Qty: 1 0RF Rx Instructions: As directed Follow-up/Referrals: Maurisio Leonard MD [Physician] - Agustín Combs MD [Physician] -
[2024-11-12] MEDS: HYDROcodone/acetaminophen (*CRX) 5-325 MG TABLET 1 TAB PO (07:43)
[2024-11-12 08:02] VITALS: BP 141/91; PULSE 87; RESP 17; O2SAT 98
[2024-11-12 08:54] VITALS: BP 132/89; PULSE 84; RESP 16; TEMP 36.7; O2SAT 99
== END 2024-11-12 08:56 | disposition home or self-care (01) ==
PROVIDERS: Emergency Provider Emergency Medicine
DX: H60.11 Cellulitis of right external ear (principal)
CPT/HCPCS: 99283; A9270